=== PATIENT | male | born 1985 | race Caucasian/White ===

== ENCOUNTER 2019-05-20 12:24 | Emergency (ER) | payer BC ==
[~2019-05-20] VITALS: Ht 177.8 cm; Wt 90.7 kg
[2019-05-20] MEDS ORDERED: TESSALON PERLE100 M1 PO (12:37)
[2019-05-20] MEDS ORDERED: AMOXICILLI400 MG/5 M PO (12:37)
[2019-05-20] MEDS ORDERED: PROAIR HFA8.5 GM INH (12:37)
[2019-05-20 13:16] LABS: ABSOLUTE BASOPHILS 0.1 thou/uL (0.0-0.2); ABSOLUTE EOSINOPHILS 0.4 thou/uL (0.0-0.7); ABSOLUTE LYMPHOCYTES 2.1 thou/uL (0.8-5.3); ABSOLUTE MONOCYTES 0.4 thou/uL (0.0-1.2); ABSOLUTE NEUTROPHILS 5.5 thou/uL (1.6-8.1); BASOPHILS 0.8 %; HEMATOCRIT 44.9 % (42.0-52.0); HEMOGLOBIN 15.7 gm/dL (14.0-18.0); LYMPHOCYTES 25.2 %; MCH 30.1 pg (26.0-34.0); MCV 85.9 fL (80.0-100.0); MONOCYTES 4.5 %; MPV 9.1 fl. (7.2-11.1); NUCLEATED RBCS 0 /100WBC; PLATELET COUNT* 218 thou/uL (150-400); POLYS 64.5 %; RBC 5.23 mil/uL (4.50-6.00); RDW-CV 13.4 % (10.5-14.5); WBC 8.5 thou/uL (4.0-11.0)
[2019-05-20 13:25] LABS: CALCIUM 8.5 mg/dL (8.5-10.1); POTASSIUM 3.8 mmol/L (3.5-5.1)
[2019-05-20 13:29] LABS: TOTAL BILIRUBIN 0.6 mg/dL (<0.1-1.0); TOTAL PROTEIN 7.2 g/dL (6.4-8.2)
[2019-05-20] MEDS ORDERED: PROMETHAZINE V120 ML PO (14:17)
[2019-05-20] MEDS ORDERED: TESSALON PERLE100 MG PO (14:17)
[2019-05-20 14:42] VITALS: BP 108/65
== END 2019-05-20 14:43 | disposition home or self-care (01) ==
LOC: M.ERS 12:24
PROVIDERS: Physician Assistant
DX: J06.9 Acute upper respiratory infection, unspecified (principal); I95.1 Orthostatic hypotension; J45.909 Unspecified asthma, uncomplicated

== ENCOUNTER → 2019-08-15 | Outpatient (CLI) | payer BC ==
[~2019-08-15] MED LIST: AMOXICILLI400 MG/5 M PO; PROAIR HFA8.5 GM INH; PROMETHAZINE V120 ML PO; TESSALON PERLE100 M1 PO; TESSALON PERLE100 MG PO
== END ==
LOC: M.RAD 09:59
DX: R07.89 Other chest pain (principal); F43.10 Post-traumatic stress disorder, unspecified; G47.33 Obstructive sleep apnea (adult) (pediatric); R53.82 Chronic fatigue, unspecified

== ENCOUNTER → 2019-08-22 | Outpatient (CLI) | payer BC ==
--- NOTE | 2019-08-26 15:26 | SLEEP ---
[address] [address] SLEEP STUDY REPORT Name: CORTEZLUDIVINA JORDY Room: [facility]#: [id number] Admission: 08/22/19 Attend Phys: Ed Ludwig MD Discharge: Date of : 89 Report #: [id number] THIS REPORT FOR: //name// CC: Ed Ludwig This study has been reviewed in its entirety by a board certified sleep specialist DATE OF SERVICE: 08/22/2019 HOME SLEEP STUDY ATTENDING PHYSICIAN: Ed Ludwig MD The patient is a 33-year-old who weighs 205 pounds with a BMI of 29.4. The patient underwent home sleep study performed by [facility]. Total recording time was 480 minutes. During the night study, the patient had 162 obstructive apneas, no central or mixed apneas and 3 hypopneas. The patient's apnea hypopnea index was 21.3 per hour with a supine index of 21.3 per hour as well. Nocturnal oximetry study revealed an average oxygen saturation 95% with lowest of 92%. Mean heart rate was 51 beats per minute with a maximum of 90 beats per minute. IMPRESSION: 1. Moderate sleep apnea-hypopnea syndrome at an AHI of 21.3 per hour. 2. No clinically significant nocturnal hypoxia. RECOMMENDATIONS: 1. The patient would benefit from treatment of sleep apnea with CPAP. This can be done as an in-lab titration study versus home auto-titration. 2. Once the patient is optimally treated, then follow up in 4-6 weeks to assess compliance with CPAP and to document clinical improvement. 3. Weight loss is advised. 4. Avoid FEATHER MIXER depressants. 5. Cautioned regarding driving until symptoms of sleep apnea resolve with the use of CPAP. <ELECTRONICALLY SIGNED> By: Josep Camejo MD 08/26/19 1526 [id number] Camejo MD /nt
== END ==
LOC: M.SLEEPLAB 10:00
DX: G47.33 Obstructive sleep apnea (adult) (pediatric) (principal); F43.10 Post-traumatic stress disorder, unspecified